=== PATIENT | male | born 1960 | race Caucasian/White ===

== ENCOUNTER → 2020-04-20 09:33 | Outpatient (BNVA) | payer OTHER, SELFPAY | PROVIDERS: Visit Provider Podiatrist Foot & Ankle Surgery | DX: M25.572 Pain in left ankle and joints of left foot (principal) | CPT/HCPCS: 73610; 73630 ==

== ENCOUNTER → 2022-02-26 08:06 | Outpatient (BNVA) | payer OTHER, SELFPAY | PROVIDERS: Referring Provider Nurse Practitioner Family; Visit Provider Student in an Organized Health Care Education/Training Program | DX: S62.515A Nondisplaced fracture of proximal phalanx of left thumb, initial encounter for closed fracture (principal); W01.0XXA Fall on same level from slipping, tripping and stumbling without subsequent striking against object, initial encounter; S62.525A Nondisplaced fracture of distal phalanx of left thumb, initial encounter for closed fracture | CPT/HCPCS: 73130; 99203 ==

== ENCOUNTER → 2022-03-26 09:29 | Outpatient (BNVA) | payer OTHER, SELFPAY | PROVIDERS: Visit Provider Student in an Organized Health Care Education/Training Program | DX: S62.512A Displaced fracture of proximal phalanx of left thumb, initial encounter for closed fracture; S62.522A Displaced fracture of distal phalanx of left thumb, initial encounter for closed fracture; X58.XXXA Exposure to other specified factors, initial encounter | CPT/HCPCS: 73130; 99213 ==

== ENCOUNTER 2022-08-27 08:27 | Outpatient (CLI) | payer OTHER, SELFPAY ==
--- NOTE | 2022-08-27 | ECG_ITS ---
[facility] Test Date: 2022-08-27 Pat Name: Viral Esparza Department: Room: Gender: Male Compliance Auditor: : 1960 Requested By: Airam Jackman Order Number: [id number] Jony MD: Umer Kearney M.D. Interpretive Statements NAME OF STUDY: LEXISCAN SESTAMIBI STRESS TEST INDICATION: Chest Pain, PROCEDURE: At the baseline, the EKG revealed sinus bradycardia with a normal ST Ts. The baseline heart was 53 bpm with a blood pressue of 118/69 mm of Hg Lexiscan was infused over a period of 20 seconds. A total of 0.4 milligrams of Lexiscan was infused. The stress phase was continued for a total of 5 minutes. Heart rate at the end of the stress phase was 70 bpm with a blood pressure 111/64 mm of Hg. The EKG at the peak infusion revealed no significant changes. Sestamibi was injected 20 seconds after the Lexiscan infusion. Heart rate at the end of the recovery phase was 68 bpm with a blood pressure of 103/66 mm of Hg. CONCLUSION: 1. No significant EKG changes with the LexiScan infusion 2. No LexiScan induced chest pain or cardiac arrhythmia 3. Normal blood pressure and heart rate response 4. Sestamibi/sestamibi perfusion scan pending; see separate report. Electronically Signed On 08-28-2022 20:32:13 CDT by Umer Kearney M.D. [id number]
[2022-08-27 08:46] VITALS: BMI 27.9
--- NOTE | 2022-08-27 09:52 | NMCV_ITS ---
NM fidel perf SPECT r/s* [id number] Viral Esparza Age: 62 Gender: M : 1960 Exam Date: 08/27/2022 09:48 Ordering Phys: Airam Hinojosa Technologist: TRUNG Hull Exam Location: [facility] Indications: FAMILY HISTORY STRESS TEST [facility] for [facility] IMAGE PROTOCOL Rest/Stress 1 Lexiscan Day Radiopharmaceutical Dose (mCi) Administration Site Administered by Rest: Tc-99m 10.8 IV TRUNG [place] Sestamibi Stress:Tc-99m 32.6 IV TRUNG [place]ard Sestamibi Rest: 27-Aug-2022 60 Discovery 630 Stress: 27-Aug-2022 30 Discovery 630 0.4mg Lexiscan. Images obtained in supine and prone position. SPECT RESULTS Technical Quality: Excellent Raw Data Analysis: Normal Image Corrections: No attenuation or motion correction applied Summed Stress Score: 5 Summed Rest Score: 4 Summed Difference Score: 2 PERFUSION FINDINGS Moderate area of moderately decreased tracer uptake in the basal and mid inferolateral and apical lateral regions. Significant reversibility was noted in the apical lateral region. FUNCTIONAL RESULTS (calculated via Gated SPECT) Stress Image LV EF (%): 65 Stress EDV (mL):133 TID: 0.89 Stress ESV (mL):46 FUNCTIONAL FINDINGS: Segmental wall motion analysis revealed mild diffuse akinesia of the septum and the LV apex IMPRESSIONS 1. Myocardial perfusion imaging revealing moderate area of moderately decreased eccentric in the inferolateral and apical lateral region with a small area of reversibility in the apical lateral region suggesting myocardial scarring in the distribution of the left circumflex artery with a small area of ischemia in the apical lateral region. 2. Normal LV ejection fraction 65%. 3. LV wall motion analysis revealing mild diffuse hypokinesia of the septum and the LV apex. 4. LV volume, upper limit of normal. No similar previous studies are available for comparison Dr Umer Kearney MD [facility] (Electronically Signed) Final Date: 27 Aug 2022 23:45 S
[2022-08-27] MEDS: regadenoson 0.4 Mg/5 ml Syringe IVP (10:21)
[2022-08-27 10:31] VITALS: BP 103/66; PULSE 67
== END 2022-08-27 08:28 | disposition home or self-care (01) ==
LOC: CDL 08:29
PROVIDERS: PCP Nurse Practitioner; Visit Provider Nurse Practitioner
DX: R07.9 Chest pain, unspecified (principal)
CPT/HCPCS: 36415; 78452; 93017; A9500; J2785

== ENCOUNTER → 2022-10-15 11:59 | Outpatient (BNVA) | payer OTHER, SELFPAY | PROVIDERS: PCP Nurse Practitioner; Referring Provider Nurse Practitioner; Visit Provider Student in an Organized Health Care Education/Training Program | DX: Z01.818 Encounter for other preprocedural examination (principal); S83.241A Other tear of medial meniscus, current injury, right knee, initial encounter; S83.281A Other tear of lateral meniscus, current injury, right knee, initial encounter; X58.XXXA Exposure to other specified factors, initial encounter | CPT/HCPCS: 36415; 80053; 81003; 85025; 99214 ==

== ENCOUNTER → 2022-11-27 10:44 | Outpatient (BNVA) | payer OTHER, SELFPAY | PROVIDERS: PCP Nurse Practitioner; Visit Provider Clinical Nurse Specialist Adult Health | DX: Z01.818 Encounter for other preprocedural examination (principal) | CPT/HCPCS: 80053; 81000; 85025 ==

== ENCOUNTER 2022-12-05 08:00 | Day surgery (SDC) | payer OTHER, SELFPAY ==
[2022-12-04 09:35] VITALS: BMI 29.2
[2022-12-05] VITALS (9 sets, daily range): BP systolic 104–134; BP diastolic 65–75; PULSE 62–81; RESP 16–18; TEMP 36.2–36.6; O2SAT 95–97
[2022-12-05] MEDS: ketorolac 30 mg/mL INJ IVP (08:32)
[2022-12-05] MEDS: sodium chloride 0.9% 1,000 ML 30 ML IV (08:32)
[2022-12-05] MEDS: acetaminophen 1,000 MG/100 ML PIGGYBACK 400 MG IV (08:32)
--- NOTE | 2022-12-05 09:35 | P.ANESASSM_ITS ---
Pre-Anesthetic Assessment Height/Weight: Height 1.85 m Weight 100.698 kg Temp Pulse Resp BP Pulse Ox O2 Del Method 97.8 F 81 18 104/66 96 Room Air 12/05/22 08:24 12/05/22 08:24 12/05/22 08:24 12/05/22 08:24 12/05/22 08:24 12/05/22 08:35 Preop Diagnosis: Right knee medial and lateral meniscus tear Operation Date: 12/05/22 10:00 Proposed Procedures p Right knee diagnostic and surgical arthroscopy with partial medial and lateral meniscectomy versus repair. 23172,S83.241A,S83.281A(Right) - Mateusz Hampden, DO Familial anesthetic complications: none Was Beta Jocelyn taken within 24 hours: N/A Was Clonidine taken within 24 hours: N/A Last intake: Intake Last Liquid Date 12/04/22 Last Liquid Time 19:00 Last Solid Date 12/04/22 Last Solid Time 19:00 Social No alcohol and No tobacco Exam alert, oriented x 3, clear to auscultation bilaterally and regular rate & rhythm Airway Submandibular: within normal limits Cervical ROM: within normal limits Mallampati: Class II Dentition: full CV/HEM Peripheral Vascular Disease (AAA 4.3cm) Metabolic Hyperlipidemia Anesthetic Plan ASA status: 2 Anesthesia: General and Regional (specify below) (right adductor blk) Medications/Allergies Home Medications Medication Instructions Recorded Confirmed Last Taken Type albuterol sulfate 90 mcg/actuation 2 inh inhalation Q6H PRN sob 11/10/19 12/05/22 Unknown History breath activated powder inhaler (ProAir RespiClick) sertraline 50 mg tablet 50 mg PO DAILY 11/10/19 12/04/22 12/03/22 History articulating AFO #1 ea 08/08/20 11/27/22 Unknown Rx aspirin 81 mg tablet,delayed 81 mg PO DAILY 11/27/22 12/04/22 11/28/22 History release atorvastatin 40 mg tablet 40 mg PO DAILY 11/27/22 12/04/22 12/04/22 History fluticasone 250 mcg-salmeterol 50 250 inh inhalation PRN 12/05/22 12/05/22 12/04/22 History mcg/dose blistr powdr for inhalation (Advair Diskus) Allergies Allergy/AdvReac Type Severity Reaction Status Date / Time No Known Allergies Allergy Verified 12/05/22 08:21 Current Medications Generic Name Dose Route Start Last Admin Trade Name Freq PRN Reason Stop Dose Admin Sodium Chloride 1,000 mls @ 30 mls/hr 12/05/22 08:15 12/05/22 08:32 Sodium Chloride 0.9% IV 12/06/22 08:14 30 mls/hr .Q24H SABRINA Administration PFSH Anesthesia Medical History (Updated 11/30/22 @ 14:08 by Taco Garcia NP) AAA (abdominal aortic aneurysm) 4.3 cm, follows with Dr Taylor, cardiology at [facility] Dilatation of aorta Dyslipidemia states his lipid panel was normal but was placed on statin due to aortic dilation Fracture of distal phalanx of thumb Fracture of thumb, proximal phalanx, left, closed Surgical History History of left knee surgery 1984 History of sinus surgery 2011 Family History Denies family history of Clotting disorder Anesthesia complication Bleeding disorder Social History Smoking and tobacco status: never smoked Data Anesthesia Cardiac Studies: Sestamibi Stress Test (Cardiology) 08/27
--- NOTE | 2022-12-05 11:07 | W.PM.OPSFHP ---
Same Day Surgery H&P Indication for Procedure/HPI DATE OF PROCEDURE: December 05, 2022 CHIEF COMPLAINT/INDICATIONFOR SURGICAL PROCEDURE: Right knee pain medial and lateral meniscus tear PREOP DIAGNOSIS: Right knee medial and lateral meniscus tear PLANNED PROCEDURE: Operation Date: 12/05/22 10:00 Proposed Procedures p Right knee diagnostic and surgical arthroscopy with partial medial and lateral meniscectomy versus repair. 58297,S83.241A,S83.281A(Right) - Mateusz Shah DO Patient's been worked up in outpatient setting MRI consistent with medial and lateral meniscus tear. He has failed conservative approach at this point in time elects proceed with surgical intervention. All questions been answered at this time understands risk benefits complication alternatives surgery and elects to proceed with surgery we will proceed with a right knee diagnostic and surgical arthroscopy with partial medial and lateral meniscectomy versus repair Medications/Allergies* Home Medications Medication Instructions Recorded Confirmed Type albuterol sulfate 90 mcg/actuation 2 inh inhalation Q6H PRN sob 11/10/19 12/05/22 History breath activated powder inhaler (ProAir RespiClick) sertraline 50 mg tablet 50 mg PO DAILY 11/10/19 12/04/22 History aspirin 81 mg tablet,delayed 81 mg PO DAILY 11/27/22 12/04/22 History release atorvastatin 40 mg tablet 40 mg PO DAILY 11/27/22 12/04/22 History fluticasone 250 mcg-salmeterol 50 250 inh inhalation PRN 12/05/22 12/05/22 History mcg/dose blistr powdr for inhalation (Advair Diskus) Allergies/Adverse Reactions Allergy/AdvReac Type Severity Reaction Status Date / Time No Known Allergies Allergy Verified 12/05/22 08:21 Current Medications: Generic Name Dose Route Start Last Admin Trade Name Freq PRN Reason Stop Dose Admin Sodium Chloride 1,000 mls @ 30 mls/hr 12/05/22 08:15 12/05/22 08:32 Sodium Chloride 0.9% IV 12/06/22 08:14 30 mls/hr .Q24H SABRINA Administration Pertinent History/Comorbid Conditions* Medical History (Updated 11/30/22 @ 14:08 by Taco Garcia NP) AAA (abdominal aortic aneurysm) 4.3 cm, follows with Dr Taylor, cardiology at [facility] Dilatation of aorta Dyslipidemia states his lipid panel was normal but was placed on statin due to aortic dilation Fracture of distal phalanx of thumb Fracture of thumb, proximal phalanx, left, closed Surgical History (Updated 04/24/20 @ 15:23 by Hesham Singleton DPM) History of left knee surgery 1984 History of sinus surgery 2011 Family History (Updated 11/27/22 @ 10:13 by Taco Garcia NP) Denies family history of Clotting disorder Anesthesia complication Bleeding disorder Social History Smoking and tobacco status: never smoked Pertinent Exam Findings alert, oriented x 3, operative site marked and procedure specific exam findings Right knee examination Mild joint effusion right knee.? There is 5/5 flexion and extension of the knees against resistance. Gait was assessed and is normal. There is discrete tenderness to palpation over the medial compartment of the right knee.? Mild tenderness over the lateral joint line.? There is pain that is reproduced with McMurrays test, but no palpable click. There is no tenderness with patella mobilization. There is a negative patella grind maneuver. There is a negative lachmans test and both knees are stable to varus and valgus stress testing. There is a negative anterior and posterior drawer. There is no significant varus or valgus malalignment. Recommendations Surgery/Procedure today Other Plans: Patient is here today he is underwent a preoperative clearance team he is ready to proceed with surgical intervention for right knee diagnostic and surgical arthroscopy with partial medial and lateral meniscectomies versus repair. Patient understands risk benefits complication alternatives with surgery elects proceed with surgical intervention. All questions answered at this time. Coding Level of Care Code Acute Code for Chg Fwd Diagnoses
[2022-12-05] MEDS: ceFAZolin 2,000 MG in sodium chloride 0.9% (plus) 50 ML 100 MG IV (11:22)
[2022-12-05] MEDS: lidocaine-epi 2% 20 mL INJ 40 ML INJECTION (11:48)
--- NOTE | 2022-12-05 12:03 | PM.OP ---
Operative Report Date of procedure: December 05, 2022 Pre-op diagnosis: Preop Diagnosis Right knee medial and lateral meniscus tear Procedure: Post-op diagnosis: Right?knee?medial and lateral meniscus tear Right?knee?extensive synovitis Procedure done: Right?knee?diagnostic and surgical arthroscopy partial medial meniscectomy Right knee diagnostic and surgical arthroscopy partial lateral meniscectomy Right?knee?diagnostic and surgical arthroscopy with extensive synovectomy of the medial lateral and patellofemoral compartments Surgeon: Mateusz Shah DO Estimated blood loss: 5 Tourniquet: No tourniquet was used IV fluids: See anesthesia record Complications: None Findings: See operative report narrative Condition: stable Disposition: same day Brief History: Patient is a 62-year-old male with right?knee?pain.? Patient has failed conservative treatment who has been worked up for right??knee?pain in the outpatient setting. MRI findings consistent with tear of the medial meniscus and lateral meniscus. talked in the office about treatment options patient would like to proceed with a right?knee?diagnostic and surgical arthroscopy with partial medial and lateral meniscectomy versus repair.? Patient understand the ins and outs of the procedure the risk benefits complication alternatives to treatment options.? Understanding risk of surgery they agree to proceed with surgical intervention.? Patient understand this may not provide patient with complete symptomatic relief of? pain as patient does have some underlying arthritis.? Understanding this and patient agree to proceed with surgical intervention all questions answered. Procedure: Patient seen and evaluated in the preoperative holding area.? Consent was reviewed and signed with patient.? Correct extremity was then marked.? Patient seen evaluated Anesthesia Department once cleared for surgery patient was taken back to the operative suite.? Patient was transported onto the OR table in supine position.? All bony prominences well-padded patient was appropriate secured to the bed.? Once appropriately anesthetized a nonsterile tourniquet was applied to the right thigh.? The right lower extremity was then prepped and draped in standard orthopedic fashion.? Final timeout performed.? Patient received appropriate preoperative antibiotics. Patient received local anesthetic of lidocaine with epinephrine into the joint as well as around the portal sites.? No tourniquet was inflated A standard 2 portal vertical incision diagnostic and surgical arthroscopy of the right?knee?was performed in standard fashion.? Small stab incision made in the inferolateral portal introduced trocar and arthroscope into the suprapatellar pouch.? Suprapatellar pouch was subsequently visualized and found to have significant synovitis but no loose bodies.? Patient had noticeable significant inflamed infrapatellar fat pad and thickening hypertrophic within the patellofemoral compartment.? ?The medial gutter was free of loose bodies I then introduced the arthroscope into the medial compartment.? Within the medial compartment I then established my inferior medial working portal utilizing spinal needle outside in technique.? Once established I then visualized our articular cartilage of the medial compartment with a valgus stress.? 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 Next I inspected the meniscus.? With an arthroscopic probe was utilized to visual? all aspects of the meniscus.? Meniscal root was found to be intact.? Meniscus was found to be torn at the body to posterior horn junction patient had degenerative calcium deposits.? I then subsequently introduced a basket forceps as well as arthroscopic shaver to perform a partial medial meniscectomy to stable meniscal tissue and then utilized a thermal wand to anneal the edges.? Next, I then performed a synovectomy of the medial compartment.? This completed medial compartment work. Next a introduced the arthroscope to the intercondylar notch.? PCL and ACL were intact. patient had significant thickening of the infrapatellar fat pad spanning into the medial and lateral compartments.? I then performed an extensive synovectomy with the arthroscopic shaver of the patellofemoral medial and lateral compartments as well as the intercondylar notch. Advance the?scope?into the retrocruciate space and no loose bodies were found. Next I introduced the arthroscope into the lateral compartment the lateral compartment was found to have grade 2 chondromalacia.? Lateral meniscus was found to have tear at the posterior horn. This was on the white white zone and was a degenerative calcified deposit tear of the meniscus. The root was intact. I then introduced arthroscopic shaver as well as basket forceps and utilized a thermal wand to anneal the edges after I completed a partial lateral meniscectomy to stable meniscal tissue. Given the grade II chondromalacia there is no unstable cartilage pieces to perform chondroplasty.? This completed my work of the lateral compartment and then performed a synovectomy of the lateral compartment.? Next of the arthroscope was placed into the lateral gutter and this was free of loose bodies.? Finally I reintroduced the arthroscope into the patellofemoral compartment.? The patellofemoral was found to have grade 2 chondromalacia of the patellofemoral compartment.? At this point I utilized arthroscopic shaver as well as thermal wand to perform extensive synovectomy of the patellofemoral compartment. This completed my work of the patellofemoral space.? I then switch my portal sites to the medial working portal.? Completed the rest of my synovectomy and the rest of my examination arthroscopy was normal. All fluid was suctioned from the joint.? ?All instruments were withdrawn.? Portal sites were closed with interrupted nylon suture.? portal sites were then covered with with Xeroform 4 x 4's ABD Curlex and Froylan wrap.? Patient was then subsequently awakened from anesthesia and taken to PACU in stable condition. Disposition: Patient taken to PACU in stable condition recovering well.? Will receive appropriate discharge structure as well as pain medication postoperatively as well as? DVT prophylaxis.we will have patient follow-up with us in the office in 2 weeks.? We will weightbearing as tolerated to the right lower extremity.? Patient understands and agrees with current plan.? All questions answered.
--- NOTE | 2022-12-05 12:15 | PM.OP2 ---
Brief Operative Note Date of procedure: 12/05/22 Pre-op diagnosis: Right knee medial and lateral meniscus tear Post-op diagnosis: same Procedure Done: Right knee diagnostic and surgical arthroscopy with partial medial and lateral meniscectomy and extensive synovectomy Surgeon: Mateusz Shah Estimated blood loss (mL): 5 Complications: none Post-op Plan: Patient in stable condition transported to PACU. Right knee weight-bear as tolerated. flollow all discharge instructions. Pain medication and nausea medication sent to pharmacy and take as needed. Follow DVT prophylaxis protocol by taking 81mg aspirin twice daily for the next 14 days then go back to your original single daily dose of 81mg aspirin. Keep dressing on for 72 hours then you can remove and clean with soap and water, but do not submerge in water. follow up at [facility]opedic [facility] in 2 weeks. Condition: stable Disposition: PACU Coding Level of Care Code Acute Code for Renetta Saunders
--- NOTE | 2022-12-05 12:23 | PM.PACU ---
PACU note Narrative: Patient is a 62-year-old male that had right knee pain with medial and lateral meniscus tears. He underwent a right knee diagnostic and surgical arthroscopy with partial medial and lateral meniscectomy and extensive synovectomy. He was transferred to PACU in stable condition. He is awake, alert and responsive. Pain is under control. Postop dressing is dry and in place. Perfusion to toes and cap refill less than 2 seconds. he can wiggle toes. Normal sensation to foot. Plantar flexion and dorsal flexion normal. He is able to perform straight leg raise. Exam: awake Disposition: discharged
--- NOTE | 2022-12-05 14:10 | ANES.PROC ---
Anesthesia Procedures Procedure/Date: 12/05/22 Nerve Block ^: Nerve Block 1: Main Anesthesia: general anesthesia Time Out Performed: Yes Consent: requested by attending/covering physician, from patient, risks and benefits reviewed and patient agrees to proceed Nerve block location: adductor canal (right) Anesthesia monitors applied: pulse oximetry, EKG, BP cuff and oxygen Nerve block position: supine Anesthetic Used: ropivicaine 0.5% Amount of anesthesia used (mL): 20 Ultrasound used to: recognize landmarks Nerve Stimulator Used?: No Interscalene/Femoral BLK: 4 stimuplex 21 g needle used for position and inplane approach Injection: neg aspiration of heme Patient Tolerated Procedure: well Complications: none
--- NOTE | 2022-12-05 14:36 | ANE.PACU2 ---
Inpatient post-anesthesia follow up: Airway intact: Yes Vital signs: Temperature 97.2 F Pulse Rate 62 Respiratory Rate 18 Blood Pressure 121/65 Pulse Oximetry 97 Oxygen Delivery Me thod Room Air Oxygen Flow Rate Fraction of Inspir ed Oxygen Hydration adequate: Yes Nausea and vomiting: No Pain level: 2 Mental status: Baseline
== END 2022-12-05 13:10 | disposition home or self-care (01) ==
PROVIDERS: PCP Nurse Practitioner; Visit Provider Student in an Organized Health Care Education/Training Program
PROC: (CPT 29870; principal; 2022-12-05 09:50)
DX: S83.241A Other tear of medial meniscus, current injury, right knee, initial encounter (principal); S83.281A Other tear of lateral meniscus, current injury, right knee, initial encounter; X58.XXXA Exposure to other specified factors, initial encounter; I73.9 Peripheral vascular disease, unspecified; E78.5 Hyperlipidemia, unspecified; Z79.82 Long term (current) use of aspirin
CPT/HCPCS: 29876; 29880; J0131; J0690; J1100; J1885; J2371; J2405; J2704; J2795; J3010; J7030

== ENCOUNTER 2022-12-27 11:24 | Outpatient (RCR) | payer OTHER, SELFPAY | END 2023-01-19 23:59 | disposition home or self-care (01) | LOC: SPT 11:24 | PROVIDERS: PCP Nurse Practitioner; Visit Provider Student in an Organized Health Care Education/Training Program | DX: Z98.890 Other specified postprocedural states (principal) | CPT/HCPCS: 97110; 97161 ==

== ENCOUNTER 2023-01-20 06:00 | Outpatient (RCR) | payer OTHER, SELFPAY | END 2023-02-08 23:59 | disposition home or self-care (01) | LOC: SPT 06:00 | PROVIDERS: PCP Nurse Practitioner; Visit Provider Student in an Organized Health Care Education/Training Program | DX: Z47.89 Encounter for other orthopedic aftercare (principal) | CPT/HCPCS: 97110 ==

== ENCOUNTER → 2023-01-24 13:35 | Outpatient (BNVA) | payer OTHER, SELFPAY | PROVIDERS: PCP Nurse Practitioner; Visit Provider Thoracic Surgery (Cardiothoracic Vascular Surgery) | DX: I77.819 Aortic ectasia, unspecified site (principal) | CPT/HCPCS: 99203 ==

== ENCOUNTER → 2023-01-31 13:39 | Outpatient (BNVA) | payer OTHER, SELFPAY | PROVIDERS: PCP Nurse Practitioner; Referring Provider Thoracic Surgery (Cardiothoracic Vascular Surgery); Visit Provider Internal Medicine Cardiovascular Disease | DX: E78.5 Hyperlipidemia, unspecified (principal); I77.819 Aortic ectasia, unspecified site; Z98.890 Other specified postprocedural states | CPT/HCPCS: 99024; 99203 ==

== ENCOUNTER 2023-08-19 16:16 | Outpatient (CLI) | payer OTHER, SELFPAY ==
--- NOTE | 2023-08-19 16:45 | CT_ITS ---
WS: [id number] CTA THORACIC AORTA WITH HISTORY: dilation of aorta TECHNIQUE: CT imaging of the thorax is performed with and without contrast. After noncontrast imaging is performed, CT angiogram is performed during injection of Omnipaque 350; 100 mL IV.. Sagittal and coronal reconstructions, sagittal and coronal MIP imaging is submitted. All CT scans at [facility] use at least one of these dose optimization techniques: automated exposure control; mA and/or k V adjustment per patient size (includes targeted exams where dose is matched to clinical indication); or iterative reconstruction. DLP: 866.36 mGy.cm COMPARISON: None available. Very good opacification of the thoracic aorta. Ascending aorta measures 4.2 cm at its maximum diamete r. Sinotubular junction 3.4 cm. Aortic annulus is 4.4 cm. Descending aorta 2.6 cm. Very minimal ather osclerotic plaque. No significant dilatation. Aorta does not fit aneurysmal criteria. Bovine arch. No significant great vessel atherosclerotic disease and no stenosis. Heart size is normal. No pericardial or pleural effusions. No pulmonary nodule, mass or pneumonia. No mediastinal or hilar adenopathy. Visualized upper abdomen is negative. No adrenal mass. No destructive bone lesions. CT/CT angio chest 40919 IMPRESSION: 1. Minimal ectasia thoracic aorta. No aneurysmal dilatation. No dissection. Mi nimal atherosclerotic disease. 2. Normal size heart. 3. No pulmonary mass or nodule.
[2023-08-19 17:08] LABS: Blood Urea Nitrogen 24 mg/dL (8-23)
[2023-08-19] MEDS: iohexol 350 mg/mL 500 mL Btl (per mL) IV (17:16)
== END 2023-08-19 16:17 | disposition home or self-care (01) ==
LOC: RAD 16:16
PROVIDERS: PCP Nurse Practitioner; Visit Provider Thoracic Surgery (Cardiothoracic Vascular Surgery)
DX: I77.810 Thoracic aortic ectasia (principal)
CPT/HCPCS: 71275; 82565; 84520; Q9967

== ENCOUNTER → 2023-08-26 14:51 | Outpatient (BNVA) | payer OTHER, SELFPAY | PROVIDERS: PCP Nurse Practitioner; Visit Provider Thoracic Surgery (Cardiothoracic Vascular Surgery) | DX: I77.819 Aortic ectasia, unspecified site (principal) | CPT/HCPCS: 99213 ==

== ENCOUNTER → 2024-02-13 13:47 | Outpatient (BNVA) | payer OTHER, SELFPAY | PROVIDERS: PCP Nurse Practitioner; Visit Provider Internal Medicine Cardiovascular Disease | DX: I77.810 Thoracic aortic ectasia (principal); E78.5 Hyperlipidemia, unspecified | CPT/HCPCS: 99213 ==

== ENCOUNTER → 2025-02-15 14:55 | Outpatient (BNVA) | payer OTHER, SELFPAY | PROVIDERS: PCP Nurse Practitioner; Visit Provider Internal Medicine Cardiovascular Disease | DX: I71.40 Abdominal aortic aneurysm, without rupture, unspecified (principal); I10 Essential (primary) hypertension; E78.5 Hyperlipidemia, unspecified | CPT/HCPCS: 99214 ==